=== PATIENT | male | born 1995 ===

== ENCOUNTER 2024-06-09 15:16 | Outpatient (REF) | payer SELFPAY ==
[2024-06-09 16:55] LABS: Alanine Aminotransferase 28 U/L (0-40); Albumin Level 4.4 g/dL (3.5-5.0); Alkaline Phosphatase 84 U/L (39-117); Aspartate Amino Transferase 23 U/L (5-37); Bilirubin Direct 0.1 mg/dL (0.0-0.5); Bilirubin Total 0.4 mg/dL (0.0-1.0); Total Protein 7.8 g/dL (6.5-8.0)
[2024-06-10 07:59] LABS: HBS Num1 1.47 mIU/mL (0-7.99); HBc Num1 0.05 S/CO (0.00-0.79); HBsAGNum1 0.27 S/CO (0.00-0.99); HIV AB/AG Nonreactive (Nonreactive); HIV Num 1 0.09 S/CO (0.00-0.99); Hepatitis B Core Antibody Nonreactive (Nonreactive); Hepatitis B Surface Antigen Negative (Negative); ~HepC Num1 0.11 S/CO (0.00-0.79); ~Hepatitis B Surface Antibody NONREACTIVE (Nonreactive); ~Hepatitis C Antibody Nonreactive (Nonreactive)
[2024-06-10 12:34] LABS: RPR Rapid Plasma Reagin NON-REACTIVE (NON-REACTIVE)
[2024-06-11 08:57] LABS: Hepatitis A Antibody IgG Nonreactive (Nonreactive); ~Hepatitis A Antibody IgG 0.54 S/CO (0.00-0.99)
[2024-06-12 05:17] LABS: TS Negative Control Passed; TS Panel A 2; TS Panel B 1; TS Positive Control Passed; TSpotTB Negative (Negative)
== END 2024-06-09 15:17 | disposition home or self-care (01) ==
LOC: HO.HHCL 15:16
PROVIDERS: Visit Provider Emergency Medicine
DX: F11.20 Opioid dependence, uncomplicated (principal); Z11.59 Encounter for screening for other viral diseases
CPT/HCPCS: 36415; 80076; 86481; 86592; 86704; 86706; 86708; 86803; 87340; 87389